=== PATIENT | female | born 1960 | race Asian ===

== ENCOUNTER 2019-02-10 10:14 | Day surgery (SDC) | payer OTHER ==
[~2019-02-10 10:14] MED LIST: CEFAZOLIN 2 GM/50 ML (PMX) 50 ML IVPB; SOD CHLORIDE 0.9% 1,000 ML IV
[2019-02-10] MEDS: SOD CHLORIDE 0.9% 1,000 ML IV (10:46)
[2019-02-10] MEDS ORDERED: MIDAZOLAM 1 MG/ML 2 ML INJ (12:06)
[2019-02-10] MEDS ORDERED: CEFAZOLIN 1 GM INJ (12:06)
[2019-02-10] MEDS ORDERED: PROPOFOL 20 ML (12:06)
[2019-02-10] MEDS ORDERED: FENTAnyl 50 MCG/ML VIAL (12:07)
[2019-02-10] MEDS ORDERED: PHENYLephrine (100 MCG/ML) 10ML SYG (12:48)
[2019-02-10] MEDS: LIDOCAINE 1% (MPF) 30 ML INJ (13:00)
[2019-02-10] MEDS: BUPIVACAINE 0.25%/EPI (SDV) 30 ML INJ (13:01)
[2019-02-10] MEDS ORDERED: IBUPROFEN 600 MG TAB PO (13:30)
[2019-02-10] MEDS ORDERED: ONDANSETRON 4 MG INJ IV (13:30)
== END 2019-02-10 15:00 | disposition home or self-care (01) ==
LOC: SDS 10:14
DX: D17.23 Benign lipomatous neoplasm of skin and subcutaneous tissue of right leg (principal); E78.5 Hyperlipidemia, unspecified; Z85.72 Personal history of non-Hodgkin lymphomas; Z82.49 Family history of ischemic heart disease and other diseases of the circulatory system; Z80.0 Family history of malignant neoplasm of digestive organs
CPT/HCPCS: 27337; 88307